=== PATIENT | male | born 1970 | race Caucasian/White ===

== ENCOUNTER 2019-12-09 16:27 | Emergency (ER) | payer BC ==
[~2019-12-09] VITALS: Ht 172.7 cm; Wt 109.0 kg
[2019-12-09] MEDS ORDERED: acetaminophen 325mg tablet PO ONE (18:10)
[2019-12-09 18:35] LABS: CLARITY,URINE CLEAR (Clear); COLOR,URINE YELLOW (Yellow); GLUCOSE, URINE NEGATIVE (Neg); KETONES,URINE NEGATIVE (Neg); LEUKOCYTE ESTERASE ,URINE SMALL (Neg); NITRITES, URINE NEGATIVE (Neg); OCCULT BLOOD,URINE LARGE (Neg); PH,URINE 5.5 (4.8-8.0); PROTEIN,URINE 30 mg/dl (Neg); UROBILINOGEN,URINE 0.2 E.U/dL (0.2-1.0)
[2019-12-09 18:44] LABS: BACTERIA,URINE FEW /HPF (Neg); RBC,URINE 0-2 /HPF (0-2); SQUAMOUS EPITHELIAL CELL,UR FEW /LPF (FEW); UA COLLECTION TYPE CLN CATCH MIDSTREAM
[2019-12-09] MEDS ORDERED: TAM75C PO (19:42)
[2019-12-09] MEDS ORDERED: CEPH-572 PO (19:42)
[2019-12-09 19:50] VITALS: BP 139/85
== END 2019-12-09 19:53 | disposition home or self-care (01) ==
LOC: ER 16:28
DX: N39.0 Urinary tract infection, site not specified (principal); J10.1 Influenza due to other identified influenza virus with other respiratory manifestations; I10 Essential (primary) hypertension
CPT/HCPCS: 71045; 81001; 87088; 87502; 87503; 93005; 99284

== ENCOUNTER 2020-09-28 18:17 | Inpatient (IN) | payer BC ==
[~2020-09-28] VITALS: Ht 172.7 cm; Wt 37.3 kg
[2020-09-28] MEDS ORDERED: acetaminophen 325mg tablet PO ONE (19:15)
[2020-09-28] MEDS ORDERED: normal saline 1000ML IV soln IVB ONE (19:15)
[2020-09-28 20:05] LABS: BASOPHILS % (AUTO) 0.3 % (0-1); EOSINOPHILS % (AUTO) 0 % (0-6); HEMATOCRIT 43.5 % (42.0-52.0); HEMOGLOBIN 14.9 g/dl (14.0-17.9); LYMPHOCYTES # (AUTO) 0.9 X10'3 (1.1-4.8); LYMPHOCYTES % (AUTO) 5.9 % (21-51); MEAN CORPUSCULAR HEMOGLOBIN 30.9 PG (27.0-31.0); MEAN CORPUSCULAR HGB CONC 34.2 g/dL (33.0-36.5); MEAN CORPUSCULAR VOLUME 90.2 FL (78-98); MEAN PLATELET VOLUME 8.5 FL (7.4-10.4); MONOCYTES # (AUTO) 1.2 X10'3 (0-0.9); NEUTROPHILS # (AUTO) 13.5 X10'3 (1.8-7.7); NEUTROPHILS % (AUTO) 85.8 % (42-75); PLATELET COUNT 190 X10'3 (140-440); RED BLOOD COUNT 4.82 X10'6 (4.70-6.10); RED CELL DISTRIBUTION WIDTH 13.5 % (11.5-14.5); WHITE BLOOD COUNT 15.7 X10'3 (4.5-11.0)
[2020-09-28 20:13] LABS: ALANINE AMINOTRANSFERASE 41 U/L (12-78); ALBUMIN 3.9 G/DL (3.4-5.0); ALBUMIN/GLOBULIN RATIO 0.9 (1.1-1.5); ALKALINE PHOSPHATASE 95 IU/L (46-116); ANION GAP 9 (8-16); ASPARTATE AMINO TRANSFERASE 26 U/L (10-37); BILIRUBIN,TOTAL 1.7 MG/DL (0.1-1.0); BLOOD UREA NITROGEN 18 MG/DL (7-18); BUN/CREATININE RATIO 10.3 (5.4-32.0); CALCIUM 9.3 MG/DL (8.5-10.1); CHLORIDE 101 MMOL/L (99-107); CREATININE 1.75 MG/DL (0.60-1.10); GLUCOSE 137 MG/DL (70-104); LIPASE 176 U/L (73-393); POTASSIUM 4.2 MMOL/L (3.5-5.1); SODIUM 134 MMOL/L (135-145); TOTAL CARBON DIOXIDE 23.9 MMOL/L (24-32); TOTAL PROTEIN 8.2 G/DL (6.4-8.2); eGFR 42 ML/MIN
[2020-09-28] MEDS ORDERED: ketorolac tromethamine 15mg/ml inj. IV ONE (21:00)
[2020-09-28] MEDS ORDERED: CefTRIAXone/D5W-Rocephin 1gm 50 ML IV ONE (21:00)
[2020-09-28 21:17] LABS: CLARITY,URINE SLIGHTLY CLOUDY (Clear); COLOR,URINE AMBER (Yellow); GLUCOSE, URINE NEGATIVE (Neg); KETONES,URINE TRACE mg/dl (Neg); LEUKOCYTE ESTERASE ,URINE MODERATE (Neg); NITRITES, URINE NEGATIVE (Neg); OCCULT BLOOD,URINE MODERATE (Neg); PH,URINE 5.5 (4.8-8.0); PROTEIN,URINE 100 mg/dl (Neg)
[2020-09-28 21:18] LABS: UA COLLECTION TYPE URINAL
[2020-09-28 21:21] LABS: BACTERIA,URINE FEW /HPF (Neg); MUCUS STRANDS MANY /LPF (Neg); SQUAMOUS EPITHELIAL CELL,UR NONE SEEN /LPF (FEW); WBC CLUMPS,URINE FEW /HPF (NEGATIVE); WBC,URINE 50-100 /HPF (0-4)
[2020-09-28] MEDS ORDERED: LISI-600 PO (23:05)
[2020-09-28] MEDS ORDERED: FLO0.4C PO (23:05)
[2020-09-28] MEDS ORDERED: AMLO10TA13 PO (23:05)
[2020-09-28] MEDS ORDERED: potassium CL 10mEq/100ml bag 100 ML IV PRN ×2 (23:35)
[2020-09-28] MEDS ORDERED: ondansetron/PF 4mg/2ml inj IV PRN (23:35)
[2020-09-28] MEDS ORDERED: HYDROmorphone inj. 0.5 MG/0.5 ML DISP.SYRIN IV PRN (23:35)
[2020-09-28] MEDS: normal saline 1000ml 1,000 ML IV SCH (23:36)
[2020-09-29] VITALS (19 sets, daily range): BP systolic 84–134; BP diastolic 41–90
[2020-09-29] MEDS: K and/or MAG REPLACEMENT MC SCH ×2 (08:00→20:00)
[2020-09-29] MEDS: tamsulosin 0.4mg capsule PO SCH (08:17)
[2020-09-29] MEDS: amLODIPine 5mg tablet PO SCH (08:18)
[2020-09-29] MEDS: lisinopril 20mg tablet PO SCH (08:19)
[2020-09-29 08:26] LABS: BASOPHILS % (AUTO) 0.2 % (0-1); EOSINOPHILS % (AUTO) 0 % (0-6); HEMATOCRIT 37.9 % (42.0-52.0); HEMOGLOBIN 12.8 g/dl (14.0-17.9); LYMPHOCYTES # (AUTO) 0.7 X10'3 (1.1-4.8); LYMPHOCYTES % (AUTO) 5.3 % (21-51); MEAN CORPUSCULAR HEMOGLOBIN 30.7 PG (27.0-31.0); MEAN CORPUSCULAR HGB CONC 33.7 g/dL (33.0-36.5); MEAN CORPUSCULAR VOLUME 91.1 FL (78-98); MEAN PLATELET VOLUME 8.5 FL (7.4-10.4); MONOCYTES # (AUTO) 1.3 X10'3 (0-0.9); NEUTROPHILS # (AUTO) 12.1 X10'3 (1.8-7.7); NEUTROPHILS % (AUTO) 85.5 % (42-75); PLATELET COUNT 145 X10'3 (140-440); RED BLOOD COUNT 4.16 X10'6 (4.70-6.10); RED CELL DISTRIBUTION WIDTH 13.6 % (11.5-14.5); WHITE BLOOD COUNT 14.1 X10'3 (4.5-11.0)
[2020-09-29 08:42] LABS: ALANINE AMINOTRANSFERASE 30 U/L (12-78); ALBUMIN 3.1 G/DL (3.4-5.0); ALBUMIN/GLOBULIN RATIO 0.8 (1.1-1.5); ALKALINE PHOSPHATASE 74 IU/L (46-116); ANION GAP 11 (8-16); ASPARTATE AMINO TRANSFERASE 20 U/L (10-37); BILIRUBIN,TOTAL 1.2 MG/DL (0.1-1.0); BLOOD UREA NITROGEN 26 MG/DL (7-18); BUN/CREATININE RATIO 13.6 (5.4-32.0); CALCIUM 8.1 MG/DL (8.5-10.1); CHLORIDE 101 MMOL/L (99-107); CREATININE 1.91 MG/DL (0.60-1.10); GLUCOSE 150 MG/DL (70-104); POTASSIUM 3.9 MMOL/L (3.5-5.1); SODIUM 134 MMOL/L (135-145); TOTAL CARBON DIOXIDE 22.2 MMOL/L (24-32); TOTAL PROTEIN 6.8 G/DL (6.4-8.2); eGFR 38 ML/MIN
[2020-09-29] MEDS: normal saline 1000ml 1,000 ML IV SCH ×2 (10:14→20:16)
[2020-09-29] MEDS: acetaminophen 325mg tablet PO PRN ×2 (10:29→21:14)
--- NOTE | 2020-09-29 15:16 | NUR ---
Low BMI trigger: Pt BMI 12.5. Current wt likely error since no scaled wt this admit w/ november wt over 100kg compared to current 37kg ER wt. Pt appears well-nourished per ER note. DRERELL d/w RN regarding updated wt this admit. Will f/u 10/03 for initial assessment. Addendum: 09/29/20 at [address] Amended: Links added.
[2020-09-29] MEDS ORDERED: meperidine/PF 25mg/ml syringe IV PRN ×3 (16:25)
[2020-09-29] MEDS ORDERED: ondansetron/PF 4mg/2ml inj IV PRN (16:25)
[2020-09-29] MEDS ORDERED: ringers solution, lacted 1,000 ML IV SCH (16:25)
[2020-09-29] MEDS ORDERED: morphine 4 MG/ML inj SYRINge IV PRN (16:25)
[2020-09-29] MEDS ORDERED: morphine 2 MG/ML inj. syringe IV PRN (16:25)
[2020-09-29] MEDS ORDERED: proCHLORperazine 10 MG/2 ml inj IV PRN (16:25)
[2020-09-29] MEDS ORDERED: sevoflurane 250ml liquid IH ONE (16:26)
[2020-09-29] MEDS ORDERED: midazolam 2 mg/2 ml injection ONE (16:31)
[2020-09-29] MEDS ORDERED: fentaNYL/PF 50MCG/1 ML 2ML syringe ONE (16:31)
[2020-09-29] MEDS ORDERED: propofol inj 20 ML IV ONE (16:51)
--- NOTE | 2020-09-29 17:10 | NUR ---
Received from OR via BED, accompanied by Anesthesiologist CLINTON and report given by Anesthesiolgist. PT DROWSY, OXYGENATING WELL ON 10 LPM O2 VIA MASK, NO RESP DISTRESS NOTED. PT DENIES NAUSEA OR PAIN AT THIS TIME. VSS, HYPOTENSIVE. WILL CONTINUE TO MONITOR. SCDS ON.
--- NOTE | 2020-09-29 17:55 | NUR ---
Problems reprioritized. Patient report given, questions answered & plan of care reviewed with BEST KRAFT.
--- NOTE | 2020-09-29 18:03 | NUR ---
PT VOIDED 50 ML OF PURULENT PINK URINE IN URINAL.
--- NOTE | 2020-09-29 18:50 | NUR ---
Report called to receiving nurse. Transferred via BED Belongings IN PT ROOM. VSS. NO PAIN. TOLERATING PO FLUIDS WELL. TRANSFERRED BACK TOP 3 SURG IN STABLE CONDITION. Special Issues communicated to receiving nurse.
--- NOTE | 2020-09-29 19:00 | NUR ---
Received report from investment recovery technician. Pt. to follow shortly.
--- NOTE | 2020-09-29 19:15 | NUR ---
Patient arrived to floor via bed. A&O and in no distress. Pt. up to bathroom and then back into bed. Post op VS initiated.
[2020-09-29] MEDS: CefTRIAXone/D5W-Rocephin 1gm 50 ML IV SCH (20:16)
[2020-09-29] MEDS: lactobacillus rhamnosus 10,000 MMU CELLS/CAPSULE PO SCH (20:16)
[2020-09-29] MEDS: HYDROmorphone inj. 0.5 MG/0.5 ML DISP.SYRIN IV PRN (21:07)
[2020-09-30] VITALS: BP 151/51
[2020-09-30 05:00] VITALS: BP 104/70
[2020-09-30 05:27] LABS: BASOPHILS % (AUTO) 0.3 % (0-1); EOSINOPHILS % (AUTO) 0.1 % (0-6); HEMATOCRIT 34.4 % (42.0-52.0); HEMOGLOBIN 11.7 g/dl (14.0-17.9); LYMPHOCYTES # (AUTO) 0.9 X10'3 (1.1-4.8); LYMPHOCYTES % (AUTO) 8.7 % (21-51); MEAN CORPUSCULAR HEMOGLOBIN 30.9 PG (27.0-31.0); MEAN CORPUSCULAR HGB CONC 33.8 g/dL (33.0-36.5); MEAN CORPUSCULAR VOLUME 91.5 FL (78-98); MEAN PLATELET VOLUME 9.2 FL (7.4-10.4); MONOCYTES # (AUTO) 1.2 X10'3 (0-0.9); MONOCYTES % (AUTO) 10.6 % (2-12); NEUTROPHILS # (AUTO) 8.8 X10'3 (1.8-7.7); NEUTROPHILS % (AUTO) 80.3 % (42-75); PLATELET COUNT 124 X10'3 (140-440); RED BLOOD COUNT 3.77 X10'6 (4.70-6.10); RED CELL DISTRIBUTION WIDTH 13.4 % (11.5-14.5); WHITE BLOOD COUNT 10.9 X10'3 (4.5-11.0)
[2020-09-30 05:35] LABS: ALANINE AMINOTRANSFERASE 24 U/L (12-78); ALBUMIN 2.7 G/DL (3.4-5.0); ALBUMIN/GLOBULIN RATIO 0.7 (1.1-1.5); ALKALINE PHOSPHATASE 66 IU/L (46-116); ANION GAP 14 (8-16); ASPARTATE AMINO TRANSFERASE 16 U/L (10-37); BILIRUBIN,TOTAL 0.7 MG/DL (0.1-1.0); BLOOD UREA NITROGEN 23 MG/DL (7-18); BUN/CREATININE RATIO 17.7 (5.4-32.0); CALCIUM 7.7 MG/DL (8.5-10.1); CHLORIDE 104 MMOL/L (99-107); GLUCOSE 139 MG/DL (70-104); POTASSIUM 3.6 MMOL/L (3.5-5.1); SODIUM 139 MMOL/L (135-145); TOTAL CARBON DIOXIDE 21.1 MMOL/L (24-32); TOTAL PROTEIN 6.4 G/DL (6.4-8.2); eGFR 59 ML/MIN
[2020-09-30] MEDS: normal saline 1000ml 1,000 ML IV SCH ×3 (05:35→17:45)
--- NOTE | 2020-09-30 07:04 | NUR ---
Patient in room [facility] [facility]. I have received report from SWAPNIL Hdez and had the opportunity to ask questions and assume patient care.
--- NOTE | 2020-09-30 07:34 | NUR ---
Problems reprioritized. Patient report given, questions answered & plan of care reviewed with Oralia Ayala.
[2020-09-30 07:36] VITALS: BP 100/59
[2020-09-30] MEDS: lactobacillus rhamnosus 10,000 MMU CELLS/CAPSULE PO SCH ×2 (07:37→19:27)
[2020-09-30] MEDS: amLODIPine 5mg tablet PO SCH (07:37)
[2020-09-30] MEDS: lisinopril 20mg tablet PO SCH (07:37)
[2020-09-30] MEDS: K and/or MAG REPLACEMENT MC SCH ×2 (08:00→19:30)
[2020-09-30] MEDS: tamsulosin 0.4mg capsule PO SCH (08:00)
[2020-09-30 11:00] VITALS: BP 100/62
--- NOTE | 2020-09-30 11:30 | NUR ---
message sent to Dr Thurman re: lab report +blood culture in aerobic bottle after 33 hours Rt arm. Gm + cocci in clusters
[2020-09-30] MEDS: HYDROmorphone inj. 0.5 MG/0.5 ML DISP.SYRIN IV PRN (17:48)
[2020-09-30] MEDS: acetaminophen 325mg tablet PO PRN (17:55)
--- NOTE | 2020-09-30 18:44 | NUR ---
Problems reprioritized. Patient report given, questions answered & plan of care reviewed with SWAPNIL Chase.
--- NOTE | 2020-09-30 18:50 | NUR ---
Patient in room [facility] [facility]. I have received report from Oralia KRAFT and had the opportunity to ask questions and assume patient care.
[2020-09-30 19:00] VITALS: BP 107/59
[2020-09-30] MEDS: CefTRIAXone/D5W-Rocephin 1gm 50 ML IV SCH (19:27)
[2020-10-01] VITALS: BP 104/59
[2020-10-01] MEDS: acetaminophen 325mg tablet PO PRN ×2 (02:48→23:50)
[2020-10-01 03:00] VITALS: BP 114/61
[2020-10-01] MEDS: normal saline 1000ml 1,000 ML IV SCH ×2 (03:39→19:27)
[2020-10-01 05:32] LABS: ALANINE AMINOTRANSFERASE 32 U/L (12-78); ALBUMIN 2.7 G/DL (3.4-5.0); ALBUMIN/GLOBULIN RATIO 0.7 (1.1-1.5); ALKALINE PHOSPHATASE 63 IU/L (46-116); ANION GAP 9 (8-16); ASPARTATE AMINO TRANSFERASE 24 U/L (10-37); BILIRUBIN,TOTAL 0.5 MG/DL (0.1-1.0); BLOOD UREA NITROGEN 15 MG/DL (7-18); CALCIUM 8.3 MG/DL (8.5-10.1); CHLORIDE 104 MMOL/L (99-107); CREATININE 0.88 MG/DL (0.60-1.10); GLUCOSE 131 MG/DL (70-104); POTASSIUM 3.5 MMOL/L (3.5-5.1); SODIUM 136 MMOL/L (135-145); TOTAL CARBON DIOXIDE 23.1 MMOL/L (24-32); TOTAL PROTEIN 6.8 G/DL (6.4-8.2); eGFR > 90 ML/MIN
[2020-10-01 05:34] LABS: BASOPHILS % (AUTO) 0.3 % (0-1); EOSINOPHILS # (AUTO) 0.1 X10'3 (0-0.9); EOSINOPHILS % (AUTO) 0.7 % (0-6); HEMATOCRIT 35.8 % (42.0-52.0); HEMOGLOBIN 12.1 g/dl (14.0-17.9); LYMPHOCYTES # (AUTO) 0.8 X10'3 (1.1-4.8); LYMPHOCYTES % (AUTO) 11.2 % (21-51); MEAN CORPUSCULAR HEMOGLOBIN 30.8 PG (27.0-31.0); MEAN CORPUSCULAR HGB CONC 33.8 g/dL (33.0-36.5); MEAN PLATELET VOLUME 9.3 FL (7.4-10.4); MONOCYTES # (AUTO) 0.8 X10'3 (0-0.9); NEUTROPHILS # (AUTO) 5.4 X10'3 (1.8-7.7); NEUTROPHILS % (AUTO) 76.8 % (42-75); PLATELET COUNT 146 X10'3 (140-440); RED BLOOD COUNT 3.93 X10'6 (4.70-6.10); RED CELL DISTRIBUTION WIDTH 13.7 % (11.5-14.5)
--- NOTE | 2020-10-01 06:06 | NUR ---
Patient in room [facility]. I have received report from SWAPNIL Chase and had the opportunity to ask questions and assume patient care.
--- NOTE | 2020-10-01 06:32 | NUR ---
Problems reprioritized. Patient report given, questions answered & plan of care reviewed with Oralia KRAFT.
[2020-10-01 07:09] VITALS: BP 116/68
[2020-10-01] MEDS: lisinopril 20mg tablet PO SCH (07:17)
[2020-10-01] MEDS: amLODIPine 5mg tablet PO SCH (07:17)
[2020-10-01] MEDS: tamsulosin 0.4mg capsule PO SCH (07:17)
[2020-10-01] MEDS: lactobacillus rhamnosus 10,000 MMU CELLS/CAPSULE PO SCH ×2 (07:18→19:28)
[2020-10-01] MEDS: K and/or MAG REPLACEMENT MC SCH ×2 (08:00→19:22)
[2020-10-01] MEDS ORDERED: pneumococcal 23-VAL P-sac vacc 25 mcg/0.5ml vial IMVAC ONE (10:00)
[2020-10-01] MEDS ORDERED: FLU VACC QS2020-21(6MOS UP)/PF 60 MCG/0.5 ML SYRINGE IMVAC ONE (10:00)
--- NOTE | 2020-10-01 11:30 | NUR ---
Dr. Thurman canceling dc of patient for today.
[2020-10-01 12:11] VITALS: BP 125/73
--- NOTE | 2020-10-01 19:00 | NUR ---
Problems reprioritized. Patient report given, questions answered & plan of care reviewed with Jamie Lopez.
--- NOTE | 2020-10-01 19:00 | NUR ---
I have received report from Pepe KRAFT and had the opportunity to ask questions and assume patient care.
[2020-10-01] MEDS: CefTRIAXone/D5W-Rocephin 1gm 50 ML IV SCH (19:26)
[2020-10-01 20:00] VITALS: BP 138/66
[2020-10-01] MEDS ORDERED: temazepam 15mg capsule PO PRN (21:25)
[2020-10-02] VITALS: BP 114/67
[2020-10-02] MEDS: normal saline 1000ml 1,000 ML IV SCH (04:33)
[2020-10-02 05:06] LABS: BASOPHILS % (AUTO) 0.3 % (0-1); EOSINOPHILS % (AUTO) 0.6 % (0-6); HEMATOCRIT 34.6 % (42.0-52.0); HEMOGLOBIN 11.8 g/dl (14.0-17.9); LYMPHOCYTES % (AUTO) 13.5 % (21-51); MEAN CORPUSCULAR VOLUME 91.1 FL (78-98); MEAN PLATELET VOLUME 8.9 FL (7.4-10.4); MONOCYTES # (AUTO) 0.7 X10'3 (0-0.9); MONOCYTES % (AUTO) 8.8 % (2-12); NEUTROPHILS # (AUTO) 5.8 X10'3 (1.8-7.7); NEUTROPHILS % (AUTO) 76.8 % (42-75); PLATELET COUNT 163 X10'3 (140-440); WHITE BLOOD COUNT 7.5 X10'3 (4.5-11.0)
[2020-10-02 05:26] LABS: ALANINE AMINOTRANSFERASE 35 U/L (12-78); ALBUMIN 2.5 G/DL (3.4-5.0); ALBUMIN/GLOBULIN RATIO 0.6 (1.1-1.5); ALKALINE PHOSPHATASE 60 IU/L (46-116); ANION GAP 11 (8-16); ASPARTATE AMINO TRANSFERASE 27 U/L (10-37); BILIRUBIN,TOTAL 0.4 MG/DL (0.1-1.0); BLOOD UREA NITROGEN 11 MG/DL (7-18); BUN/CREATININE RATIO 14.5 (5.4-32.0); CALCIUM 8.5 MG/DL (8.5-10.1); CHLORIDE 108 MMOL/L (99-107); CREATININE 0.76 MG/DL (0.60-1.10); GLUCOSE 120 MG/DL (70-104); POTASSIUM 3.8 MMOL/L (3.5-5.1); SODIUM 143 MMOL/L (135-145); TOTAL CARBON DIOXIDE 23.9 MMOL/L (24-32); TOTAL PROTEIN 6.4 G/DL (6.4-8.2); eGFR > 90 ML/MIN
--- NOTE | 2020-10-02 06:36 | NUR ---
Problems reprioritized. Patient report given, questions answered & plan of care reviewed with Delmy KRAFT.
--- NOTE | 2020-10-02 06:42 | NUR ---
Patient in room [facility]. I have received report from Heather KRAFT and had the opportunity to ask questions and assume patient care. Addendum: 10/02/20 at 0644 by Cynthia Dyer RN Received report from Jes KRAFT
[2020-10-02 07:00] VITALS: BP 103/67
[2020-10-02] MEDS: K and/or MAG REPLACEMENT MC SCH (08:00)
[2020-10-02] MEDS: lactobacillus rhamnosus 10,000 MMU CELLS/CAPSULE PO SCH (08:56)
[2020-10-02] MEDS: tamsulosin 0.4mg capsule PO SCH (08:56)
[2020-10-02] MEDS ORDERED: LEVO500T89 PO (10:16)
[2020-10-02] MEDS ORDERED: normal saline 1000ml 1,000 ML IV SCH (10:20)
--- NOTE | 2020-10-02 11:22 | NUR ---
PAGER ID: [phone] MESSAGE: Vinicio Mclaughlin# [phone] Pt states he wants to know if he can get PO meds and go home so he can work. Would like to speak you. Cynthia [phone]
[2020-10-02 12:00] VITALS: BP 122/62
--- NOTE | 2020-10-02 12:40 | NUR ---
Pt left AMA, due to the fact that he wanted to return to work. Pt is A & O x4 and in no apparent distress. Pt spoke to Dr Thurman and ask to be DC. Dr. Thurman prescribed Levaquin antibiotics which were called to [facility] on [address] per Dr. Thurman. Pt signed his AMA paper, IV cath was removed intact. Pt packed his C+pap & belongings and left.
== END 2020-10-02 12:36 | disposition left against medical advice (07) | DRG 660 ==
LOC: ER 18:17 → ED HOLD 23:33 → SUR 3N 09-29 07:25
PROVIDERS: ADMIT Internal Medicine; ATTEND Internal Medicine
PROC: 0T778DZ Dilation of Left Ureter with Intraluminal Device, Via Natural or Artificial Opening Endoscopic (ICD-10-PCS; principal; 2020-09-29 16:26)
PROC: 3E0234Z Introduction of Serum, Toxoid and Vaccine into Muscle, Percutaneous Approach (ICD-10-PCS; 2020-10-01)
PROC: 3E02340 Introduction of Influenza Vaccine into Muscle, Percutaneous Approach (ICD-10-PCS; 2020-10-01)
DX: N13.6 Pyonephrosis (principal); R78.81 Bacteremia; N17.9 Acute kidney failure, unspecified; N40.0 Benign prostatic hyperplasia without lower urinary tract symptoms; B95.61 Methicillin susceptible Staphylococcus aureus infection as the cause of diseases classified elsewhere; Z20.828 Contact with and (suspected) exposure to other viral communicable diseases; I10 Essential (primary) hypertension; Z85.528 Personal history of other malignant neoplasm of kidney; Z87.442 Personal history of urinary calculi; Z90.5 Acquired absence of kidney; Z23 Encounter for immunization; Z79.899 Other long term (current) drug therapy
CPT/HCPCS: 99285; Z7506; 36415; 74176; 76000; 80053; 81001; 82948; 83605; 83690; 84145; 85025; 85610; 87040; 87077; 87081; 87088; 87186; 87635; 90732; A4618; C1758; C1769; C2617; C9803; G0378; J0696; J1170; J1885; J2250; J2704; J3010; J7030; J7120; Q2039